=== PATIENT | male | born 1970 | race Caucasian/White ===

== ENCOUNTER 2017-11-13 00:44 | Emergency (ER) | payer OTHER ==
[2017-11-13] MEDS ORDERED: HYDROcodone/ACETAMIN 5-325 MG* 1 TAB PO ONE ×3 (00:54→01:40)
[2017-11-13] MEDS ORDERED: Ketorolac INJ* 30 MG/ML 1 ML VIAL ONE (01:00)
[2017-11-13] MEDS ORDERED: Ketorolac INJ* 30 MG/ML 1 ML VIAL IM ONE (01:01)
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
[2017-11-13] MEDS ORDERED: HYDROcodone/ACETAMIN 5-325 MG* 1 TAB ONE (01:27)
[2017-11-13 01:53] VITALS: BP 148/105
--- NOTE | 2017-11-13 08:00 | RAD ---
INDICATION: Right shoulder pain COMPARISON: None TECHNIQUE: Routine frontal, Y and axial views were obtained. FINDINGS: The bony structures, joint spaces, and soft tissues are normal for age. IMPRESSION: NEGATIVE EXAMINATION.
== END 2017-11-13 02:02 | disposition home or self-care (01) ==
LOC: ED 00:44
DX: M25.511 Pain in right shoulder (principal)
CPT/HCPCS: 96372; 99282; J1885

== ENCOUNTER 2017-11-13 04:53 | Emergency (ER) | payer OTHER ==
[2017-11-13] MEDS ORDERED: oxyCODONE/Acetamin 5/325 MG* TAB PO ONE (05:14)
[2017-11-13] MEDS ORDERED: Cyclobenzaprine TAB* 10 MG PO ONE (05:27)
[2017-11-13 06:08] VITALS: BP 145/84
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
== END 2017-11-13 06:06 | disposition home or self-care (01) ==
LOC: ED 04:53
DX: M25.511 Pain in right shoulder (principal)
CPT/HCPCS: 99282; A9270-GY

== ENCOUNTER 2017-11-15 09:35 | Emergency (ER) | payer OTHER ==
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
[2017-11-15 10:35] VITALS: BP 00/00
== END 2017-11-15 10:34 | disposition home or self-care (01) ==
LOC: ED 09:35
DX: M25.511 Pain in right shoulder (principal)
CPT/HCPCS: 99281